=== PATIENT | male | born 1985 | race African-American/Black ===

== ENCOUNTER 2016-02-28 02:55 | Emergency (ER) | payer BC, OTHER ==
[~2016-02-28] VITALS: Ht 190.5 cm; Wt 136.1 kg
[~2016-02-28 02:55] MED LIST: AZITHROMYCIN 2250 MG PO; NOHOMEMEDICATIONS; PREDNISONE 10 M10 M1 PO; TUSSIONEX PENN473 ML PO
[2016-02-28 02:56] VITALS: BP 151/97
[2016-02-28] MEDS ORDERED: INDOMETHACIN 5050 M1 PO (03:02)
[2016-02-28] MEDS ORDERED: PREDNISONE 10 M10 MG PO (03:26)
== END 2016-02-28 03:36 | disposition home or self-care (01) ==
LOC: ER 02:55
DX: M72.2 Plantar fascial fibromatosis (principal); F10.99 Alcohol use, unspecified with unspecified alcohol-induced disorder; F12.10 Cannabis abuse, uncomplicated; I10 Essential (primary) hypertension